=== PATIENT | male | born 1965 | race Caucasian/White ===

== ENCOUNTER 2021-09-19 15:12 | Outpatient (CLI) | payer OTHER, SELFPAY ==
[2021-09-19 15:22] VITALS: BP 134/81; PULSE 91; RESP 16; TEMP 36.7; O2SAT 97; BMI 29.5
[2021-09-19] MEDS: 0.9% Saline Lock 10 ML Syringe IV (15:46)
[2021-09-19 16:16] VITALS: BP 115/81; PULSE 72; RESP 16; TEMP 36.9; O2SAT 98
[2021-09-19 17:02] VITALS: BP 139/77; PULSE 74; RESP 16; TEMP 36.9; O2SAT 97
== END 2021-09-19 17:25 | disposition home or self-care (01) ==
LOC: MS3OUT 15:12 → MS3 15:13
PROVIDERS: Referring Provider Nurse Practitioner Acute Care; Visit Provider Nurse Practitioner Acute Care
DX: Z23 Encounter for immunization (principal); U07.1 COVID-19
CPT/HCPCS: J7050; M0245; Q0245; A4216